=== PATIENT | male | born 1965 | race Caucasian/White ===

== ENCOUNTER 2021-04-06 14:02 | Outpatient (CLI) | payer OTHER, SELFPAY ==
--- NOTE | ~2021-04-06 | XR_ITS ---
XR lumbar spine 6V w bending 04/06/2021 14:32 Indication: Low back pain Procedure: 8 views of the lumbar spine including flexion/extension Comparison: No prior studies for comparison. Findings: No significant alteration of alignment with flexion/extension. Vertebral body heights are m aintained. There is mild disc narrowing at L4-5 and L5-S1. No evidence for spondylolisthesis. Pedicle s intact. Sacral foramen are symmetric. Impression: 1: Mild lumbar spondylosis. Reviewed, dictated and finalized at location B. 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
== END 2021-04-06 14:03 | disposition home or self-care (01) ==
LOC: ANHIMG 14:07
PROVIDERS: PCP Family Medicine; Visit Provider Family Medicine
DX: M54.50 Low back pain, unspecified (principal); M79.606 Pain in leg, unspecified; M47.816 Spondylosis without myelopathy or radiculopathy, lumbar region
CPT/HCPCS: 72114

== ENCOUNTER 2022-01-17 11:01 | Outpatient (CLI) | payer OTHER, SELFPAY ==
--- NOTE | ~2022-01-17 | XR_ITS ---
EXAMINATION: XR chest 2V DATE: 01/17/2022 11:16 INDICATION: Cough. RSV. TECHNIQUE: PA and lateral views of the chest were obtained. COMPARISON: None FINDINGS: The lungs are clear with no focal airspace opacities, pulmonary edema, pleural effusion or pneumothor ax. The cardiomediastinal silhouette is normal with bilateral anterior paracardial fat pads. Visualiz ed bones and soft tissues are unremarkable. IMPRESSION: 1. No acute cardiopulmonary disease. Reviewed, dictated and finalized at location A. 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
== END 2022-01-17 11:02 | disposition home or self-care (01) ==
LOC: ANHIMG 11:04
PROVIDERS: PCP Family Medicine; Visit Provider Nurse Practitioner Family
DX: B33.8 Other specified viral diseases (principal); R05.9 Cough, unspecified
CPT/HCPCS: 71046

== ENCOUNTER 2022-10-29 12:52 | Outpatient (CLI) | payer OTHER, SELFPAY ==
--- NOTE | ~2022-10-29 | XR_ITS ---
EXAMINATION: XR chest 2V 10/29/2022 13:11 INDICATION: Cough. History of RSV. PROCEDURE: 2 view chest COMPARISON: 01/17/2022 FINDINGS: The lungs are clear. The cardiomediastinal silhouette is within normal limits. There are no pleural effusions. There is no pneumothorax suspected. IMPRESSION: 1: NO ACUTE CARDIOPULMONARY DISEASE. Reviewed, dictated and finalized at location B.
== END 2022-10-29 12:53 | disposition home or self-care (01) ==
PROVIDERS: PCP Family Medicine; Visit Provider Nurse Practitioner Family
DX: R05.9 Cough, unspecified (principal); R06.02 Shortness of breath
CPT/HCPCS: 71046

== ENCOUNTER 2022-12-04 03:05 | Day surgery (SDC) | payer OTHER, SELFPAY ==
[2022-11-30 13:06] VITALS: BMI 30.2
[2022-12-04 10:18] VITALS: BP 143/97; PULSE 71; RESP 18; TEMP 36.6; O2SAT 98; BMI 29.9
[2022-12-04] MEDS: LACTATED RINGERS 1,000 ML 150 ML IV CONT (10:38)
--- NOTE | 2022-12-04 10:44 | WPDANESEPPF ---
Anes - Initial Pre Proc Eval Procedure: Operation Date: 12/04/22 11:30 Proposed Procedures p Esophagogastroduodenoscopy - Bud Bethea MD Date/Time: 12/04/22 10:44 Surgeon: Bud Bethea MD Pre Op Diagnosis: GERD without esophagitis, Apnea Patient Data Age: 57 Gender: M Height: 1.83 m Weight: 100.2 kg Last Vital Signs Temp 97.9 F 12/04/22 10:18 Pulse 71 12/04/22 10:18 Resp 18 12/04/22 10:18 BP 143/97 H 12/04/22 10:18 Pulse Ox 98 12/04/22 10:18 O2 Del Method Room Air 12/04/22 10:18 Allergies Allergy/AdvReac Type Severity Reaction Status Date / Time Sulfa (Sulfonamide AdvReac Intermediate Hives Verified 11/30/22 13:19 Antibiotics) Home Medications Medication Instructions Recorded Confirmed Type escitalopram oxalate 10 mg tablet 10 mg PO DAILY #90 tabs 11/21/22 11/30/22 Rx atorvastatin 40 mg tablet 40 mg PO DAILY #90 tabs 11/27/22 11/30/22 Rx fluticasone fur. 100 mcg-umeclid 1 inh inhalation Q24H #60 ea 11/27/22 11/30/22 Rx 62.5 mcg-vilant 25 mcg inhalat.powder (Trelegy Ellipta) omeprazole 20 mg capsule,delayed 20 mg PO DAILY 11/27/22 11/30/22 History release acetaminophen 650 mg 650 mg PO DAILY 11/30/22 11/30/22 History tablet,extended release qhphgbp-ylfixxjsjkodu-ymhuygdp 250 1 tablet PO DAILY 11/30/22 11/30/22 History mg-250 mg-65 mg tablet (Excedrin Extra Strength) pseudoephedrine HCl 60 mg tablet 60 mg PO DAILY 11/30/22 11/30/22 History Patient hx anesthesia problems: none Family hx anesthesia problems: none Results Review: All pre-operative results and documents have been reviewed as part of the pre-operative evaluation. [facility] Past Medical History Medical History (Updated 11/27/22 @ 16:23 by Joshua Bagley MD) BMI 27.0-27.9,adult BMI 28.0-28.9,adult BMI 29.0-29.9,adult Chest pain GERD with apnea Low back pain radiating down leg Lumbar spondylosis Mixed hyperlipidemia Otitis externa Screening for lipid disorders Screening for prostate cancer Surgical History Surgical History History of right knee surgery Family History Family History Father Liver cancer Diabetes mellitus Mother Hypertension Hyperlipidemia Sibling No problems noted. Other Renal cancer Social History Social History Smoking packs per day: 1 Smoking cigarettes per day: 20.0 Years smoked: 35 Smoking pack-years: 35.00 Smoking status: Former smoker Tobacco type: cigarettes Second hand tobacco smoke exposure: No Smoking end date: 10/09/21 Alcohol intake: never Substance use: never Substance use type: does not use Lack of Transportation: No Lack of Food: Never True Current Housing: I Have Housing Concerned About Future Housing: No Difficulty Paying Gas/Electric Bills: No Difficulty Paying for Meds: No Currently Unemployed: No Education: High School Diploma/GED Difficulty w/ Childcare or Family Care: No Living arrangements: with friend(s) Occupation/Education: occupation 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 Informed Consent: The patient's anesthetic plan and its attendant risks and benefits were di
--- NOTE | 2022-12-04 10:46 | PM.HPGS ---
History of Present Illness History of Present Illness Consent: Risks, benefits, and alternatives have been discussed and questions answered. Patient agrees to proceed with procedure. Chief complaint: GERD without esophagitis, Apnea Narrative: Nick Bruce is a 57 year old male with gerd on omeprazole otc, had egd in 2005 Review of Systems Constitutional: Constitutional: Denies headache(s) and Denies weakness Eyes: Eyes: Denies blurry vision ENT: Reports Normal hearing present, Denies headache(s) and Denies neck pain Cardiovascular: Cardiovascular: Denies chest pain and Denies dyspnea Respiratory: Respiratory: Denies dyspnea Gastrointestinal: Gastrointestinal: Reports no additional gastrointestinal complaints Genitourinary: Genitourinary: Denies dysuria Musculoskeletal: Musculoskeletal: Denies neck pain Integumentary/Breasts: Skin/Breast: Denies dry skin Neurologic: Reports Normal hearing present, Denies headache(s) and Denies weakness Psychiatric: Psychiatric: Denies anxiety Endocrine: Endocrine: Denies change in body appearance Hematologic/Lymphatic: Hematologic/Lymphatic: Denies easy bleeding Allergic/Immunologic: Allergic/Immunologic: Denies urticaria PMFSH Past Medical History Medical History (Updated 11/27/22 @ 16:23 by Joshua Bagley MD) BMI 27.0-27.9,adult BMI 28.0-28.9,adult BMI 29.0-29.9,adult Chest pain GERD with apnea Low back pain radiating down leg Lumbar spondylosis Mixed hyperlipidemia Otitis externa Screening for lipid disorders Screening for prostate cancer Surgical History Surgical History History of right knee surgery Family History Family History Father Liver cancer Diabetes mellitus Mother Hypertension Hyperlipidemia Sibling No problems noted. Other Renal cancer Social History Social History Smoking packs per day: 1 Smoking cigarettes per day: 20.0 Years smoked: 35 Smoking pack-years: 35.00 Smoking status: Former smoker Tobacco type: cigarettes Second hand tobacco smoke exposure: No Smoking end date: 10/09/21 Alcohol intake: never Substance use: never Substance use type: does not use Lack of Transportation: No Lack of Food: Never True Current Housing: I Have Housing Concerned About Future Housing: No Difficulty Paying Gas/Electric Bills: No Difficulty Paying for Meds: No Currently Unemployed: No Education: High School Diploma/GED Difficulty w/ Childcare or Family Care: No Living arrangements: with friend(s) Occupation/Education: occupation 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 100 mcg-umeclid 1 inh inhalation Q24H #60 ea 11/27/22 11/30/22 Rx 62.5 mcg-vilant 25 mcg inhalat.powder (Trelegy Ellipta) omeprazole 20 mg capsule,delayed 20 mg PO DAILY 11/27/22 11/30/22 History release acetaminophen 650 mg 650 mg PO DAILY 11/30/22 11/30/22 History tablet,extended release [id number]-wgfjysvtvdbik-[id number] 250 1 tablet PO DAILY 11/30/22 11/30/22 History mg-250 mg-65 mg tablet (Excedrin Extra Strength) pseudoephedrine HCl 60 mg tablet 60 mg PO DAILY 11/30/22 11/30/22 History Allergies Allergy/AdvReac Type Severity Reaction Status Date / Time Sulfa (Sulfonamide AdvReac Intermediate Hives Verified 11/30/22 13:19 Antibiotics) Vital Signs Vital Signs - 24 hr 12/04/22 10:18 Temperature 97.9 F Pulse Rate 71 Respiratory Rate 18
[2022-12-04] MEDS: BENZOCAINE (*SP) 60 ML SPRAY CAN (HURRICAINE) 1 SPRAY MUCOUS MEM (10:48)
[2022-12-04 10:56] VITALS: BP 130/75; PULSE 82; RESP 18; O2SAT 99
[2022-12-04 11:06] VITALS: BP 120/83; PULSE 81; RESP 22; O2SAT 96
[2022-12-04 11:16] VITALS: BP 147/91; PULSE 73; RESP 21; O2SAT 97
== END 2022-12-04 11:32 | disposition home or self-care (01) ==
PROVIDERS: PCP Family Medicine; Visit Provider Internal Medicine Gastroenterology
PROC: 0DJ08ZZ Inspection of Upper Intestinal Tract, Via Natural or Artificial Opening Endoscopic (ICD-10-PCS; CPT 43235; principal; 2022-12-04 11:30)
DX: K29.70 Gastritis, unspecified, without bleeding (principal); K21.9 Gastro-esophageal reflux disease without esophagitis; R06.81 Apnea, not elsewhere classified; E78.2 Mixed hyperlipidemia; Z87.891 Personal history of nicotine dependence; Z79.82 Long term (current) use of aspirin; Z79.51 Long term (current) use of inhaled steroids
CPT/HCPCS: 43239; 88305; J2704; J7120